=== PATIENT | male | born 2000 | race Caucasian/White ===

== ENCOUNTER 2024-02-22 10:44 | Emergency (ER) | payer BC ==
[2024-02-22] MEDS ORDERED: Ketorolac Tromethamine 30 MG (1 mL) VIAL ONE (11:03)
[2024-02-22] MEDS ORDERED: Morphine 4 MG/ML VIAL ONE ×2 (11:03→13:35)
== END 2024-02-22 16:15 | disposition home or self-care (01) ==
LOC: ERS 10:44
DX: S06.0X0A Concussion without loss of consciousness, initial encounter (principal); S02.31XA Fracture of orbital floor, right side, initial encounter for closed fracture; S02.40EA Zygomatic fracture, right side, initial encounter for closed fracture; F41.9 Anxiety disorder, unspecified; V23.9 Unspecified motorcycle rider injured in collision with car, pick-up truck or van in traffic accident; Z55.6 Problems related to health literacy
CPT/HCPCS: 70450; 70486; 96374; 96375; 96376; G0390; J1885; J2272